=== PATIENT | male | born 1965 | race Caucasian/White ===

== ENCOUNTER → 2016-08-19 | Outpatient (REF) | payer BC ==
[2016-08-19 13:45] LABS: ALKALINE PHOSPHATASE 80 U/L (45-117); ALT/SGPT 30 U/L (12-78); ANION GAP 7 MEQ/L (8-16); AST/SGOT 15 U/L (15-37); BILIRUBIN,TOTAL 0.4 MG/DL (0.2-1.0); BLOOD UREA NITROGEN 22 MG/DL (7-18); CALCIUM LEVEL 9.4 MG/DL (8.5-10.1); CARBON DIOXIDE LEVEL 28 MEQ/L (21-32); CHLORIDE LEVEL 107 MEQ/L (98-107); CHOLESTEROL LEVEL 223 MG/DL (<200); GLOMERULAR FILTRATION RATE > 60.0 (>56); GLUCOSE, FASTING 101 MG/DL (70-105); POTASSIUM SERUM 4.6 MEQ/L (3.5-5.1); SODIUM LEVEL 142 MEQ/L (136-145); TRIGLYCERIDES LEVEL 130 MG/DL (<150)
[2016-08-19 13:46] LABS: ALBUMIN 4.3 GM/DL (3.2-5.2); ALBUMIN/GLOBULIN RATIO 1.39 (1.00-1.93); TOTAL PROTEIN 7.4 GM/DL (6.4-8.2)
== END ==
LOC: M SFHCPLAZ 08:46
PROVIDERS: ATTEND Family Medicine
DX: E78.5 Hyperlipidemia, unspecified (principal)

== ENCOUNTER → 2017-02-09 | Outpatient (REF) | payer BC | LOC: M SFHCPLAZ 08:23 | PROVIDERS: ATTEND Family Medicine | DX: E78.5 Hyperlipidemia, unspecified (principal) ==

== ENCOUNTER → 2017-08-17 | Outpatient (REF) | payer BC ==
[2017-08-17 13:53] LABS: ALBUMIN/GLOBULIN RATIO 1.18 (1.00-1.93); ALKALINE PHOSPHATASE 82 U/L (45-117); ALT/SGPT 38 U/L (12-78); ANION GAP 11 MEQ/L (8-16); AST/SGOT 23 U/L (7-37); BILIRUBIN,TOTAL 0.4 MG/DL (0.2-1.0); BLOOD UREA NITROGEN 12 MG/DL (7-18); CALCIUM LEVEL 8.8 MG/DL (8.5-10.1); CARBON DIOXIDE LEVEL 27 MEQ/L (21-32); CHLORIDE LEVEL 103 MEQ/L (98-107); CHOLESTEROL LEVEL 232 MG/DL (<200); CHOLESTEROL RISK RATIO 4.833 (<5); CREATININE FOR GFR 0.94 MG/DL (0.70-1.30); GLOMERULAR FILTRATION RATE > 60.0 (>56); GLUCOSE, FASTING 94 MG/DL (70-100); HDL CHOLESTEROL 48 MG/DL (>40); NON-HDL-C 184 MG/DL; POTASSIUM SERUM 4.5 MEQ/L (3.5-5.1); SODIUM LEVEL 141 MEQ/L (136-145); TOTAL PROTEIN 7.4 GM/DL (6.4-8.2); TRIGLYCERIDES LEVEL 200 MG/DL (<150)
[2017-08-17 18:19] LABS: ESTIMATED AVERAGE GLUCOSE 114 MG/DL (60-110); HEMOGLOBIN A1c 5.6 %
== END ==
LOC: M SFHCADAM 08:35
DX: R73.03 Prediabetes (principal); E78.5 Hyperlipidemia, unspecified; R03.0 Elevated blood-pressure reading, without diagnosis of hypertension
CPT/HCPCS: 80053

== ENCOUNTER → 2018-07-14 | Outpatient (REF) | payer BC ==
[2018-07-14 13:53] LABS: ALBUMIN 4.1 GM/DL (3.2-5.2); ALT/SGPT 30 U/L (12-78); BILIRUBIN,TOTAL 0.8 MG/DL (0.2-1.0); BLOOD UREA NITROGEN 18 MG/DL (7-18); CALCIUM LEVEL 8.8 MG/DL (8.5-10.1); CARBON DIOXIDE LEVEL 27 MEQ/L (21-32); CHLORIDE LEVEL 104 MEQ/L (98-107); CHOLESTEROL LEVEL 216 MG/DL (<200); CREATININE FOR GFR 0.89 MG/DL (0.70-1.30); GLOMERULAR FILTRATION RATE > 60.0 (>56); GLUCOSE, FASTING 101 MG/DL (70-100); HDL CHOLESTEROL 48 MG/DL (>40); LDL CHOLESTEROL 147 MG/DL (<100); NON-HDL-C 168 MG/DL; POTASSIUM SERUM 4.5 MEQ/L (3.5-5.1); SODIUM LEVEL 139 MEQ/L (136-145); TOTAL PROTEIN 7.7 GM/DL (6.4-8.2); TRIGLYCERIDES LEVEL 107 MG/DL (<150)
[2018-07-14 13:55] LABS: HEMOGLOBIN A1c 5.4 %
== END ==
LOC: M SFHCADAM 08:49
PROVIDERS: ATTEND Family Medicine
DX: E78.5 Hyperlipidemia, unspecified (principal); R73.03 Prediabetes; Z12.5 Encounter for screening for malignant neoplasm of prostate
CPT/HCPCS: 80053; 80061; 83036; G0103

== ENCOUNTER → 2019-08-24 | Outpatient (REF) | payer BC ==
[2019-08-24 14:25] LABS: ALBUMIN 4.1 GM/DL (3.2-5.2); ALT/SGPT 41 U/L (12-78); BILIRUBIN,TOTAL 0.6 MG/DL (0.2-1.0); BLOOD UREA NITROGEN 19 MG/DL (7-18); CALCIUM LEVEL 9.7 MG/DL (8.5-10.1); CARBON DIOXIDE LEVEL 30 MEQ/L (21-32); CHLORIDE LEVEL 105 MEQ/L (98-107); CHOLESTEROL LEVEL 259 MG/DL (<200); CHOLESTEROL RISK RATIO 5.755 (<5); CREATININE FOR GFR 0.88 MG/DL (0.70-1.30); GLOMERULAR FILTRATION RATE > 60.0 (>56); GLUCOSE, FASTING 93 MG/DL (70-100); HDL CHOLESTEROL 45 MG/DL (>40); LDL CHOLESTEROL 152 MG/DL (<100); NON-HDL-C 214 MG/DL; POTASSIUM SERUM 4.5 MEQ/L (3.5-5.1); RHEUMATOID FACTOR QUANT 75.7 IU/ML (<15.0); SODIUM LEVEL 139 MEQ/L (136-145); TOTAL PROTEIN 7.7 GM/DL (6.4-8.2); TRIGLYCERIDES LEVEL 308 MG/DL (<150)
[2019-08-24 14:45] LABS: HEMOGLOBIN A1c 5.7 %
[2019-08-25 19:09] LABS: ANA (HEP2) Negative (.)
== END ==
LOC: M SFHCADAM 08:42
PROVIDERS: ATTEND Family Medicine
DX: M79.89 Other specified soft tissue disorders (principal); I10 Essential (primary) hypertension; R73.03 Prediabetes; E78.5 Hyperlipidemia, unspecified; Z12.5 Encounter for screening for malignant neoplasm of prostate
CPT/HCPCS: 80053; 80061; 83036; 85652; 86038; 86431; G0103

== ENCOUNTER → 2020-02-01 | Outpatient (REF) | payer BC ==
[2020-02-01 17:01] LABS: C REACTIVE PROTEIN QUANTITATIV < 0.30 MG/DL (0.00-0.30); CHOLESTEROL LEVEL 247 MG/DL (<200); HDL CHOLESTEROL 50 MG/DL (>40); LDL CHOLESTEROL 164 MG/DL (<100); NON-HDL-C 197 MG/DL; TRIGLYCERIDES LEVEL 167 MG/DL (<150)
== END ==
LOC: M SFHCADAM 09:10
PROVIDERS: ATTEND Family Medicine
DX: E78.5 Hyperlipidemia, unspecified (principal); R76.8 Other specified abnormal immunological findings in serum; M79.89 Other specified soft tissue disorders

== ENCOUNTER → 2020-03-07 | Outpatient (CLI) | payer BC ==
--- NOTE | 2020-03-07 12:58 | REP ---
INDICATION: UNILATERAL PRIMARY OSTEOARTHRITIS, LEFT HIP COMPARISON: None. TECHNIQUE: Frontal view of the pelvis with neutral and frog-lateral views of the right and left hip. FINDINGS: Patient is status post right hip replacement. Moderate to significant degenerative changes of the left hip includes subchondral sclerosis to the acetabulum and femoral head with osteophytosis primarily noted along the inferior margin of the acetabulum and near complete joint space obliteration. No evidence for fracture or dislocation. IMPRESSION: Moderate to significant degenerative changes to the left hip. <Electronically signed by Ramon Nava > 03/07/20 [id number]
--- NOTE | 2020-03-07 13:01 | REP ---
INDICATION: UNILATERAL PRIMARY OSTEOARTHRITIS, LEFT HIP COMPARISON: None. TECHNIQUE: AP, lateral, bilateral oblique views right and left hand. FINDINGS: Right hand demonstrates generalized age-related changes. Minimal arthritic changes at the interphalangeal joints and 1st metacarpophalangeal joint includes subtle subchondral sclerosis with minimal marginal spurring. No periarticular calcifications or erosive changes. No acute or healed injury. Left hand demonstrates generalized age-related changes. Minimal arthritic changes at the interphalangeal joints and 1st metacarpophalangeal joint include subtle subchondral sclerosis with minimal marginal spurring. No periarticular calcification or erosive changes. No acute or healed injury. IMPRESSION: Mild symmetric arthritic changes primarily involving the 1st metacarpophalangeal and interphalangeal joints. <Electronically signed by Ramon Nava > 03/07/20 [id number]
== END ==
LOC: M RAD 12:26
PROVIDERS: ATTEND Internal Medicine
DX: M16.12 Unilateral primary osteoarthritis, left hip (principal); M05.79 Rheumatoid arthritis with rheumatoid factor of multiple sites without organ or systems involvement; Z96.642 Presence of left artificial hip joint

== ENCOUNTER → 2020-03-07 | Outpatient (REF) | payer BC ==
[2020-03-07 13:08] LABS: BASO % 0.7 % (0.0-1.0); EOS # 0.1 10^3/uL (0.0-0.5); EOS % 1.7 % (0.0-3.0); HEMATOCRIT 45.8 % (42.0-52.0); HEMOGLOBIN 14.7 g/dl (13.5-17.5); LYMPH # 1.6 10^3/uL (1.5-5.0); LYMPH % 27.9 % (24.0-44.0); MEAN CORPUSCULAR HEMOGLOBIN 28.3 pg (27.0-33.0); MEAN CORPUSCULAR HGB CONC 32.1 g/dl (32.0-36.5); MEAN CORPUSCULAR VOLUME 88.2 fl (80.0-96.0); MONO # 0.5 10^3/uL (0.0-0.8); NEUTROPHILS # 3.5 10^3/uL (1.5-8.5); NEUTROPHILS % 59.2 % (36.0-66.0); PLATELET COUNT, AUTOMATED 274 10^3/uL (150-450); RED BLOOD COUNT 5.19 10^6/uL (4.30-6.10); WHITE BLOOD COUNT 5.9 10^3/uL (4.0-10.0)
[2020-03-07 13:43] LABS: ALBUMIN 4.3 GM/DL (3.2-5.2); ALT/SGPT 39 U/L (12-78); BILIRUBIN,TOTAL 0.5 MG/DL (0.2-1.0); BLOOD UREA NITROGEN 17 MG/DL (7-18); CALCIUM LEVEL 9.2 MG/DL (8.5-10.1); CARBON DIOXIDE LEVEL 29 MEQ/L (21-32); CHLORIDE LEVEL 105 MEQ/L (98-107); CREATININE FOR GFR 0.94 MG/DL (0.70-1.30); ERYTHROCYTE SEDIMENTATION RATE 10 mm/hr (0-20); GLOMERULAR FILTRATION RATE > 60.0 (>56); GLUCOSE, FASTING 96 MG/DL (70-100); POTASSIUM SERUM 4.7 MEQ/L (3.5-5.1); SODIUM LEVEL 138 MEQ/L (136-145); TOTAL PROTEIN 7.4 GM/DL (6.4-8.2)
[2020-03-07 14:03] LABS: HEPATITIS B SURFACE ANTIGEN NEGATIVE (NEGATIVE)
[2020-03-07 14:32] LABS: HEPATITIS C VIRUS ABY INDEX 0.1 INDEX (<0.8)
== END ==
LOC: M SFHCRHEU 11:07
PROVIDERS: ATTEND Internal Medicine
DX: M05.79 Rheumatoid arthritis with rheumatoid factor of multiple sites without organ or systems involvement (principal)

== ENCOUNTER → 2020-03-16 | Outpatient (CLI) | payer SELFPAY | LOC: M LABSMTC 08:57 | PROVIDERS: ATTEND Pediatrics | DX: Z20.822 Contact with and (suspected) exposure to COVID-19 (principal) ==

== ENCOUNTER → 2020-03-27 | Outpatient (CLI) | payer SELFPAY | LOC: M LABSMTC 12:50 | PROVIDERS: ATTEND Pediatrics | DX: Z20.822 Contact with and (suspected) exposure to COVID-19 (principal) ==

== ENCOUNTER → 2020-03-28 | Outpatient (CLI) | payer BC ==
[2020-03-28 13:42] LABS: BASO % 0.6 % (0.0-1.0); EOS # 0.1 10^3/uL (0.0-0.5); EOS % 1.9 % (0.0-3.0); HEMATOCRIT 45.7 % (42.0-52.0); LYMPH # 1.8 10^3/uL (1.5-5.0); LYMPH % 27.7 % (24.0-44.0); MEAN CORPUSCULAR HGB CONC 32.8 g/dl (32.0-36.5); MEAN CORPUSCULAR VOLUME 88.4 fl (80.0-96.0); MONO # 0.6 10^3/uL (0.0-0.8); MONO % 9.5 % (0.0-5.0); NEUTROPHILS # 3.8 10^3/uL (1.5-8.5); NEUTROPHILS % 59.1 % (36.0-66.0); PLATELET COUNT, AUTOMATED 269 10^3/uL (150-450); RED BLOOD COUNT 5.17 10^6/uL (4.30-6.10); WHITE BLOOD COUNT 6.4 10^3/uL (4.0-10.0)
[2020-03-28 14:12] LABS: ERYTHROCYTE SEDIMENTATION RATE 13 mm/hr (0-20)
[2020-03-28 14:47] LABS: ALBUMIN 4.3 GM/DL (3.2-5.2); ALT/SGPT 35 U/L (12-78); BILIRUBIN,TOTAL 0.5 MG/DL (0.2-1.0); BLOOD UREA NITROGEN 15 MG/DL (7-18); C REACTIVE PROTEIN QUANTITATIV 0.32 MG/DL (0.00-0.30); CALCIUM LEVEL 9.7 MG/DL (8.5-10.1); CARBON DIOXIDE LEVEL 31 MEQ/L (21-32); CHLORIDE LEVEL 103 MEQ/L (98-107); CREATININE FOR GFR 0.91 MG/DL (0.70-1.30); GLOMERULAR FILTRATION RATE > 60.0 (>56); GLUCOSE, FASTING 105 MG/DL (70-100); POTASSIUM SERUM 5.1 MEQ/L (3.5-5.1); SODIUM LEVEL 141 MEQ/L (136-145); TOTAL PROTEIN 7.6 GM/DL (6.4-8.2)
== END ==
LOC: M LAB 12:02
PROVIDERS: ATTEND Internal Medicine
DX: M05.79 Rheumatoid arthritis with rheumatoid factor of multiple sites without organ or systems involvement (principal)

== ENCOUNTER 2020-06-11 12:13 | Inpatient (IN) | payer BC ==
[~2020-06-11] VITALS: Ht 188 cm; Wt 133.2 kg
[2020-06-11] MEDS ORDERED: AMLO1TAB24 PO (12:42)
[2020-06-11] MEDS ORDERED: hydrALAZINE 20MG/ML 1ML VIAL (J0360 PER 20MG) IV ONE (12:45)
[2020-06-11 13:20] LABS: HEMATOCRIT 44.9 % (42.0-52.0); HEMOGLOBIN 14.8 g/dl (13.5-17.5); MEAN CORPUSCULAR HEMOGLOBIN 29.1 pg (27.0-33.0); MEAN CORPUSCULAR VOLUME 88.2 fl (80.0-96.0); PLATELET COUNT, AUTOMATED 332 10^3/uL (150-450); RED BLOOD COUNT 5.09 10^6/uL (4.30-6.10); WHITE BLOOD COUNT 9.4 10^3/uL (4.0-10.0)
[2020-06-11] MEDS ORDERED: AMPICILLIN SOD/SULBACTAM SOD 3 GM in D5W MINI-BAG PLUS 100 ML IV ONE (13:20)
[2020-06-11] MEDS: HYDROMORPHONE HCL 0.5 MG/ 0.5 ML SYRINGE (J1170 PER 1) IV PRN ×2 (13:52→14:33)
--- NOTE | 2020-06-11 14:08 | HPEPDOC ---
[facility] Medical History & Physical Date of Admission Jun 11, 2020 Date of Service: Jun 11, 2020 History and Physical CHIEF COMPLAINT: Epistasis HISTORY OF PRESENT ILLNESS: 54-year-old male who was in his usual state of healt h this morning, developed a nosebleed from his left nares. He denies any trauma to his nares. He sought medical attention in [place] where a Rhino Rocket was places in his left nostril, with no improvement in his symptoms. He then received a Rhino Rocket in his right nostril, still with no improvement in his symptoms. He was then transferred to [facility] and continues to have bleeding from both nares. He complains of pain from his nose, with elevated blood pressure. Denies any other symptoms. He denies chest pain, shortness of breath, abdominal pain, nausea, vomiting or diarrhea. He is not able to obtain a Covid test because of the Rhino Rocket. He states he received his first shot of Moderna vaccine roughly 2 weeks ago. He denies any sick contacts. He denies any travel outside of [facility]. PAST MEDICAL HISTORY: #HTN ALLERGIES: Please see below. REVIEW OF SYSTEMS: Negative except as per HPI HOME MEDICATIONS: Please see below. PHYSICAL EXAMINATION: VITAL SIGNS: See below GENERAL APPEARANCE: mild distress from pain HEENT: NC, rhino rocket in both nares CARDIOVASCULAR: +S1S2, RRR LUNGS: CTA B/L ABDOMEN: soft, NT, +BS, obese EXTREMITIES: no edema PSYCHIATRIC: AAOx3 LABORATORY DATA: See below. MICROBIOLOGY: Please see below. A/P: 54 yo male for epistaxis with elevated blood pressure #epistaxis - follow as per ENT - consultation pending #HTN - IV hydralazine for blood pressure control - continue home amlodipine #DVT prophylaxis - mechanical Dispo: pending ENT c/s, blood pressure control. Patient unable to obtain COVID testing, however has had first Moderna vaccination, and denies any sick contacts or concerning symptoms. Discussed with infection control. Vital Signs Vital Signs Date Time Temp Pulse Resp B/P (MAP) Pulse Ox O2 Delivery O2 Flow Rate FiO2 06/11/20 13:52 97.3 81 17 190/105 96 Room Air Laboratory Data Labs 24H Laboratory Tests 2 06/11/20 12:58: Nucleated Red Blood Cells % (auto) 0.0 CBC/BMP Laboratory Tests 06/11/20 12:58 Home Medications Scheduled Amlodipine Besylate (Amlodipine Besylate) 5 Mg Tablet, 5 MG PO DAILY Allergies Coded Allergies: Cashew (Unverified Allergy, Unknown, 06/11/20) Rebutwu-Zgb-Osx Reductase Inhibitor (Unverified Allergy, Unknown, 06/11/20) prednisone (Unverified Allergy, Unknown, 06/11/20) A-FIB/CHADSVASC A-FIB History Current/History of A-Fib/PAF?: No RENAE BENITES MD Jun 11, 2020 14:08
[2020-06-11 15:02] LABS: INR 0.95; PROTHROMBIN TIME 12.9 SECONDS (12.5-14.3)
[2020-06-11 15:15] LABS: ALBUMIN 3.9 GM/DL (3.2-5.2); ALT/SGPT 32 U/L (12-78); BILIRUBIN,TOTAL 0.4 MG/DL (0.2-1.0); BLOOD UREA NITROGEN 29 MG/DL (7-18); CALCIUM LEVEL 9.5 MG/DL (8.5-10.1); CARBON DIOXIDE LEVEL 27 MEQ/L (21-32); CHLORIDE LEVEL 104 MEQ/L (98-107); CREATININE FOR GFR 0.77 MG/DL (0.70-1.30); GLOMERULAR FILTRATION RATE > 60.0 (>56); GLUCOSE, FASTING 115 MG/DL (70-100); POTASSIUM SERUM 4.7 MEQ/L (3.5-5.1); SODIUM LEVEL 140 MEQ/L (136-145); TOTAL PROTEIN 7.6 GM/DL (6.4-8.2)
[2020-06-11 16:19] VITALS: BP 129/81
[2020-06-11] MEDS ORDERED: propofoL 200 MG/20 ML VIAL As Ordered ONE (17:42)
[2020-06-11] MEDS ORDERED: LIDOCAINE 2% 100MG/5ML SDV (FOR ANES.) As Ordered ONE ×2 (17:42→19:03)
[2020-06-11] MEDS ORDERED: ROCURONIUM BROMIDE 50 MG/5 ML VIAL As Ordered ONE (17:42)
[2020-06-11] MEDS ORDERED: fentaNYL 250 MCG/5 ML INJECTION (J3010) As Ordered ONE (17:43)
[2020-06-11] MEDS ORDERED: SUCCINYLCHOLINE 100 MG/5 ML SYRINGE (J0330) As Ordered ONE (17:43)
[2020-06-11] MEDS ORDERED: MIDAZOLAM INJ 2MG/2ML VIAL (J2250 PER 1MG) As Ordered ONE (17:43)
[2020-06-11] MEDS ORDERED: SILVER NITRATE APPLICATOR As Ordered ONE (17:57)
[2020-06-11] MEDS ORDERED: METHYLENE BLUE 0.5% (5MG/ML) 10 ML AMP (PROVAYBLUE) As Ordered ONE (17:57)
[2020-06-11] MEDS ORDERED: EPINEPHrine 1MG/ML INJ 30ML MD-VIAL As Ordered ONE (17:57)
[2020-06-11] MEDS ORDERED: LIDOCAINE W/EPINEPHRINE 1% 20ML VIAL As Ordered ONE (18:20)
[2020-06-11] MEDS ORDERED: PHENYLephrine 500MCG 5ML (100MCG/ML) SYRINGE As Ordered ONE (18:34)
[2020-06-11] MEDS ORDERED: ePHEDrine SULFATE 25 MG/5 ML(5MG/ML) SYRINGE As Ordered ONE (18:34)
[2020-06-11] MEDS ORDERED: dexameTHASONE 4 MG/ML 1ML VIAL (J1100 PER 1MG) As Ordered ONE (18:46)
[2020-06-11] MEDS ORDERED: ONDANSETRON 4MG/2ML VIAL As Ordered ONE (18:46)
[2020-06-11] MEDS ORDERED: SUGAMMADEX SODIUM 500 MG/5 ML VIAL (BRIDION) As Ordered ONE (18:47)
[2020-06-11] MEDS ORDERED: ACETAMINOPHEN 1000MG 100ML IV BTL (OFIRMEV) (J0131 PER 10MG) As Ordered ONE (18:50)
[2020-06-11] MEDS ORDERED: LABETALOL 100MG/20ML VIAL As Ordered ONE (19:43)
[2020-06-11] MEDS ORDERED: fentaNYL 100 MCG/2 ML INJECTION (J3010) As Ordered ONE (19:43)
[2020-06-11] MEDS: fentaNYL 100 MCG/2 ML INJECTION (J3010) IV PRN ×4 (19:46→20:14)
[2020-06-11] MEDS: LABETALOL 100MG/20ML VIAL IV PRN ×2 (19:48→20:01)
[2020-06-11] MEDS ORDERED: oxyCODONE 5MG TAB PO PRN (20:10)
[2020-06-11] MEDS ORDERED: LR 1,000 ML IV SCH (20:10)
[2020-06-11] MEDS ORDERED: ONDANSETRON 4MG/2ML VIAL IV PRN (20:10)
[2020-06-11 21:06] VITALS: BP 129/83
[2020-06-11 21:30] VITALS: BP 131/84
[2020-06-11] MEDS: AMPICILLIN SOD/SULBACTAM SOD 1.5 GM in D5W MINI-BAG PLUS 50 ML IV SCH (21:31)
[2020-06-11 22:30] VITALS: BP 134/83
[2020-06-11] MEDS ORDERED: ACETAMINOPHEN TAB 650MG DOSE (2X325MG) PO PRN (23:00)
[2020-06-11 23:30] VITALS: BP 133/80
[2020-06-12] MEDS ORDERED: oxyCODONE 5MG TAB PO PRN
[2020-06-12 00:30] VITALS: BP 115/69
[2020-06-12 01:30] VITALS: BP 130/79
[2020-06-12] MEDS: SODIUM CHLORIDE NASAL 0.65% SPRAY BTL (OCEAN) SCH ×2 (01:42→10:24)
[2020-06-12] MEDS: AMPICILLIN SOD/SULBACTAM SOD 1.5 GM in D5W MINI-BAG PLUS 50 ML IV SCH ×2 (02:35→10:24)
[2020-06-12 06:00] VITALS: BP 123/70
[2020-06-12 07:01] LABS: BASO % 0.2 % (0.0-1.0); HEMATOCRIT 36.8 % (42.0-52.0); LYMPH # 1.1 10^3/uL (1.5-5.0); LYMPH % 10.8 % (24.0-44.0); MEAN CORPUSCULAR HEMOGLOBIN 29.3 pg (27.0-33.0); MEAN CORPUSCULAR HGB CONC 32.6 g/dl (32.0-36.5); MEAN CORPUSCULAR VOLUME 89.8 fl (80.0-96.0); MONO # 0.5 10^3/uL (0.0-0.8); MONO % 5.1 % (2.0-8.0); NEUTROPHILS # 8.5 10^3/uL (1.5-8.5); NEUTROPHILS % 82.4 % (36.0-66.0); PLATELET COUNT, AUTOMATED 286 10^3/uL (150-450); WHITE BLOOD COUNT 10.3 10^3/uL (4.0-10.0)
[2020-06-12 07:25] LABS: ALBUMIN 3.5 GM/DL (3.2-5.2); ALT/SGPT 27 U/L (12-78); BILIRUBIN,TOTAL 0.4 MG/DL (0.2-1.0); BLOOD UREA NITROGEN 38 MG/DL (7-18); CALCIUM LEVEL 8.7 MG/DL (8.5-10.1); CARBON DIOXIDE LEVEL 26 MEQ/L (21-32); CHLORIDE LEVEL 101 MEQ/L (98-107); CREATININE FOR GFR 1.15 MG/DL (0.70-1.30); GLOMERULAR FILTRATION RATE > 60.0 (>56); GLUCOSE, FASTING 149 MG/DL (70-100); POTASSIUM SERUM 4.6 MEQ/L (3.5-5.1); SODIUM LEVEL 134 MEQ/L (136-145); TOTAL PROTEIN 6.7 GM/DL (6.4-8.2)
--- NOTE | 2020-06-12 07:57 | ECGEPIP ---
[facility] - ED Test Date: 2020-06-11 Pat Name: JERE VAIL Department: Room: [place] [address] Gender: Male Pulper Tender: jayleen : 1965 Requested By: MARLENA Vee Order Number: [id number] Reading MD: Poli Pedroza Measurements Intervals [place] Rate: 91 P: 32 AK: 150 QRS: 19 QRSD: 94 T: 1 QT: 364 QTc: 447 Interpretive Statements Normal sinus rhythm Minimal voltage criteria for LVH, may be normal variant ( R in aVL ) NONSPECIFIC T WAVE ABNORMALITY(S) NO PRIORS FOR COMPARISON Electronically Signed on 06-12-2020 7:56:53 EDT by Poli Pedroza
--- NOTE | 2020-06-12 08:58 | RO ---
OPERATIVE NOTE DATE OF OPERATION: 06/11/2020 PREOPERATIVE DIAGNOSIS: Epistaxis. POSTOPERATIVE DIAGNOSIS: Epistaxis. PROCEDURE PERFORMED: 1. Removal of the right and the left Rhino Rockets. 2. Nasal endoscopy. 3. Control of epistaxis, left and right using the Sinu-Foam. SURGEON: Forrest Linares MD PICKLING OPERATOR: ANESTHESIA: General. CLINICAL PREAMBLE: This is a 54-year-old man who presented to the local emergency department with sudden onset of epistaxis that started from the left side early this morning. A Rhino Rocket was initially placed to the left side. However, the hemorrhage occurred to the right side as well. As such, bilateral Rhino Rocket placement was performed. The patient continued to have issue with continued hemorrhage as well as increased systolic blood pressure up to 195. As a result, he was transferred to [facility] for further evaluation and control of the epistaxis as needed. The hospitalist has been managing the blood pressure with good progress. However, the patient complained of significant pain due to bilateral nasal packing. He also has some residual oozing seen on the posterior pharyngeal wall. As such, management options including surgery risks have been discussed with the patient. He understood and consented to the procedure. OR NARRATION: The patient was transferred directly from the floor to the OR due to COVID-19 precaution requirement as he could not get nasal swab for the COVID testing. He was placed in supine position on the operating table. General anesthesia was induced followed by orotracheal intubation without incident. The patient was prepped and draped in the usual fashion for the procedure. Appropriate COVID-19 precautions were taken including wearing N95 mask throughout the entire procedure. The right Rhino Rocket was then deflated and removed from the nasal cavity. Cottonoid pledgets soaked in 1:100,000 epinephrine was then placed into the right nasal cavity. After a waiting period, the pledgets were removed using 30 degree rigid nasal endoscope. The right nasal cavity was inspected. There was no evidence of arterial bleeder. The sphenopalatine artery area was free of ulceration, no mass or lesion. The nasal cavity was then repacked with the pledget soaking 1:1000 epinephrine. Attention was turned to the left nasal cavity. The left Rhino Rocket was deflated and successfully removed. The left nasal cavity was then packed using pledget soaked in 1:1000 epinephrine as well. After a waiting period, the pledget was removed and inspection of the left nasal cavity was performed using 30 degree rigid nasal endoscope as well. There was no evidence of mass lesions or arterial bleeder. The left sphenopalatine area was also clear. At this time, the Sinu-Foam was then used to pack the left nasal cavity. The right nasal cavity was then similarly packed using the self-dissolving Sinu-Foam as well. At the end of the procedure, sponge and instrument counts were correct. No complications were encountered. Estimated blood loss was approximately 5 mL. General anesthesia was reversed and the patient was extubated and brought to the recovery room in stable condition. At the end of the procedure, the hospitalist, Dr. Givens was contacted and I was able to inform him of my findings and he will maximize the control of the hypertension issue. I have also spoken to the patient in the postop area to inform of the findings as well.
[2020-06-12] MEDS ORDERED: amLODIPine 5 MG TAB PO SCH (09:00)
[2020-06-12 10:00] VITALS: BP 127/70
[2020-06-12] MEDS ORDERED: Sodium Chloride Nasal Spray (10:11)
[2020-06-12] MEDS ORDERED: AUGM875T28 PO (10:11)
[2020-06-12 10:26] VITALS: BP 127/70
--- NOTE | 2020-06-12 13:31 | DSES ---
DISCHARGE SUMMARY DATE OF ADMISSION: 06/11/2020 DATE OF DISCHARGE: 06/12/2020 DISCHARGE DIAGNOSIS: Epistaxis, severe, with acute blood loss anemia. SECONDARY DIAGNOSIS: Hypertension. HISTORY: Antonio Menard was admitted with severe epistaxis. He was transferred from [facility] for ENT evaluation. HOSPITAL COURSE: He was transferred to [facility]. Dr. Linares saw him. He went to the operating room. No arterial bleeder was seen. This was a venous nose bleed. Rhino Rockets were removed left and right, and he had Sinu-Foam which is self dissolving packing placed with control of epistaxis. On the morning of discharge, his hemoglobin was down from a baseline of 14.8 to 12.0, but he has no active bleeding. His blood pressure was under good control, and he was ready to go home. PHYSICAL EXAMINATION: HEENT: Essentially unremarkable. LUNGS: Clear. HEART: Regular rhythm. ABDOMEN: Soft, nontender. EXTREMITIES: No peripheral edema. LABORATORY DATA: Electrolytes unremarkable. Creatinine normal. Hemoglobin on discharge 12. INR normal. DISPOSITION: He was discharged home in improved and stable condition. We had a long discussion today. This was a venous nose bleed and has nothing to do with his arterial blood pressure. We discussed this at length (hypertension does not cause venous epistaxis as the venous pressure is totally unaffected by the arterial blood pressure). He will use saline nasal spray for hydration every four hours. It probably was a nose bleed due to excessive winter dryness. His activity is as tolerated. No added salt diet. He is on amlodipine 5 mg daily for his blood pressure, and I sent some Augmentin 875 mg b.i.d. for seven days to his pharmacy. Follow up in our office in a week. Follow up with Dr. Linares per his office.
== END 2020-06-12 13:18 | disposition home or self-care (01) | DRG 951 ==
LOC: M ED 12:13 → EDBD 12:13 → M ED INP 14:08 → ENRESERV 14:57 → M MSPAV 16:20
PROVIDERS: ADMIT Internal Medicine; ATTEND Family Medicine
PROC: 093K8ZZ Control Bleeding in Nasal Mucosa and Soft Tissue, Via Natural or Artificial Opening Endoscopic (ICD-10-PCS; principal; 2020-06-11 13:30)
DX: R04.0 Epistaxis (principal); D62 Acute posthemorrhagic anemia; I10 Essential (primary) hypertension

== ENCOUNTER → 2020-06-19 | Outpatient (REF) | payer BC ==
[~2020-06-19] MED LIST: AMLO1TAB24 PO; AUGM875T28 PO; Sodium Chloride Nasal Spray
[2020-06-19 12:50] LABS: BASO # 0.1 10^3/uL (0.0-0.2); BASO % 1.3 % (0.0-1.0); EOS # 0.1 10^3/uL (0.0-0.5); EOS % 1.6 % (0.0-3.0); HEMATOCRIT 39.1 % (42.0-52.0); HEMOGLOBIN 12.8 g/dl (13.5-17.5); LYMPH # 2.2 10^3/uL (1.5-5.0); LYMPH % 27.7 % (24.0-44.0); MEAN CORPUSCULAR HEMOGLOBIN 29.3 pg (27.0-33.0); MEAN CORPUSCULAR HGB CONC 32.7 g/dl (32.0-36.5); MEAN CORPUSCULAR VOLUME 89.5 fl (80.0-96.0); MONO # 0.7 10^3/uL (0.0-0.8); MONO % 8.5 % (2.0-8.0); NEUTROPHILS # 4.5 10^3/uL (1.5-8.5); NEUTROPHILS % 56.7 % (36.0-66.0); PLATELET COUNT, AUTOMATED 304 10^3/uL (150-450); RED BLOOD COUNT 4.37 10^6/uL (4.30-6.10); WHITE BLOOD COUNT 7.9 10^3/uL (4.0-10.0)
[2020-06-19 13:01] LABS: INR 0.92; PROTHROMBIN TIME 12.5 SECONDS (12.5-14.3)
[2020-06-19 13:02] LABS: PARTIAL THROMBOPLASTIN TIME 29.9 SECONDS (24.2-38.5)
== END ==
LOC: M SFHCADAM 10:30
PROVIDERS: ATTEND Physician Assistant
DX: M05.79 Rheumatoid arthritis with rheumatoid factor of multiple sites without organ or systems involvement (principal); R04.2 Hemoptysis; R04.0 Epistaxis

== ENCOUNTER → 2020-06-21 | Outpatient (CLI) | payer BC ==
--- NOTE | 2020-06-21 12:27 | REP ---
INDICATION: HEMOPTYSIS COMPARISON: None TECHNIQUE: Axial noncontrast images from the thoracic inlet to the upper abdomen with coronal and sagittal reformations. This CT examination was performed using the following dose reduction techniques: Automated exposure control, adjustment of mA and/or kv according to the patient's size, and use of iterative reconstruction technique. FINDINGS: The bilateral lung estrella are relatively well aerated, symmetric and essentially clear. No consolidation, mass lesion, or obvious significant nodule is identified. Very few small noncalcified nodules measure up to 3 mm (left lower lobe image 77). No effusion. No pneumothorax. No obvious adenopathy. The mediastinum demonstrates mild atherosclerotic changes to the thoracic aorta and coronary arteries without aortic aneurysm or cardiomegaly. No pericardial effusion. A small hiatal hernia at the gastroesophageal junction is suggested. Musculoskeletal structures are intact and without acute osseous abnormality. Upper abdomen demonstrates cholelithiasis and normal bilateral adrenal glands. IMPRESSION: 1. No obvious significant acute mediastinal or pleuroparenchymal process. 2. Few small noncalcified nodules up to 3 mm are nonspecific. Consider 12 month follow-up low-dose chest CT for high risk patients. <Electronically signed by Ramon Nava > 06/21/20 [id number]
== END ==
LOC: M RAD 11:57
PROVIDERS: ATTEND Family Medicine
DX: R04.2 Hemoptysis (principal)

== ENCOUNTER → 2020-07-09 | Outpatient (CLI) | payer BC ==
--- NOTE | 2020-07-09 15:38 | REPVR ---
PROCEDURE INFORMATION: Exam: CT Maxillofacial Without Contrast, Sinus Exam date and time: 07/09/2020 3:14 PM Age: 54 years old Clinical indication: Other: Sinus pain; Additional info: Chronic maxillary sinusitis TECHNIQUE: Imaging protocol: CT Maxillofacial without contrast. Focus on the sinuses. Radiation optimization: All CT scans at this facility use at least one of these dose optimization techniques: automated exposure control; mA and/or kV adjustment per patient size (includes targeted exams where dose is matched to clinical indication); or iterative reconstruction. COMPARISON: No relevant prior studies available. FINDINGS: Frontal sinuses: Normal. No air-fluid levels. Ethmoid air cells: Normal. No air-fluid levels. Sphenoid sinuses: There is mild mucosal thickening in the left sphenoid sinus. The right sphenoid sinus is clear. There are no air-fluid levels. Maxillary sinuses: There is trace mucosal thickening in the maxillary sinus is. There are no air-fluid levels. The ostiomeatal units are patent. Nasal cavity/Septum: There is mild rightward angulation of the anterior nasal septum. Mild leftward bowing of the posterior nasal septum is also present. A leftward directed nasal spur is noted along the posterior/inferior nasal septum. Orbital cavity: The orbital structures are unremarkable. Bones/joints: Unremarkable. Soft tissues: Unremarkable. IMPRESSION: No acute abnormality. Electronically signed by: Eliud Bliss On 07/09/2020 15:38:32 PM
== END ==
LOC: M RAD 15:05
PROVIDERS: ATTEND Otolaryngology
DX: J32.0 Chronic maxillary sinusitis (principal)

== ENCOUNTER 2020-07-31 20:52 | Observation (INO) | payer BC ==
[~2020-07-31] VITALS: Ht 188 cm; Wt 134.1 kg
[2020-07-31] MEDS ORDERED: OXYMETAZOLINE 0.05% NASAL SPRAY (AFRIN) ONE (21:15)
[2020-07-31 21:28] LABS: BASO # 0.1 10^3/uL (0.0-0.2); BASO % 0.6 % (0.0-1.0); EOS # 0.2 10^3/uL (0.0-0.5); EOS % 1.6 % (0.0-3.0); HEMATOCRIT 44.5 % (42.0-52.0); HEMOGLOBIN 14.6 g/dl (13.5-17.5); LYMPH # 3.3 10^3/uL (1.5-5.0); LYMPH % 35.3 % (24.0-44.0); MEAN CORPUSCULAR HEMOGLOBIN 29.3 pg (27.0-33.0); MEAN CORPUSCULAR HGB CONC 32.8 g/dl (32.0-36.5); MEAN CORPUSCULAR VOLUME 89.2 fl (80.0-96.0); MONO # 0.9 10^3/uL (0.0-0.8); MONO % 9.3 % (2.0-8.0); NEUTROPHILS # 4.9 10^3/uL (1.5-8.5); NEUTROPHILS % 52.1 % (36.0-66.0); PLATELET COUNT, AUTOMATED 318 10^3/uL (150-450); RED BLOOD COUNT 4.99 10^6/uL (4.30-6.10); WHITE BLOOD COUNT 9.4 10^3/uL (4.0-10.0)
[2020-07-31 21:40] LABS: INR 0.88; PROTHROMBIN TIME 12.1 SECONDS (12.5-14.3)
[2020-07-31 21:41] LABS: PARTIAL THROMBOPLASTIN TIME 29.7 SECONDS (24.2-38.5)
[2020-07-31 21:50] LABS: BLOOD UREA NITROGEN 22 MG/DL (7-18); CALCIUM LEVEL 9.8 MG/DL (8.5-10.1); CARBON DIOXIDE LEVEL 30 MEQ/L (21-32); CHLORIDE LEVEL 105 MEQ/L (98-107); CREATININE FOR GFR 1.17 MG/DL (0.70-1.30); GLOMERULAR FILTRATION RATE > 60.0 (>56); GLUCOSE, FASTING 141 MG/DL (70-100); SODIUM LEVEL 140 MEQ/L (136-145)
[2020-07-31] MEDS ORDERED: NS 500 ML IV ONE (22:45)
[2020-07-31] MEDS ORDERED: MORPHINE 4 MG/ML 1ML VIAL/SYRINGE (J2270) IV ONE (23:05)
[2020-07-31] MEDS ORDERED: MAALOX 30 ML SUSP *UDC PO PRN (23:45)
[2020-07-31] MEDS ORDERED: MOM 30ML SUSPENSION UDC PO PRN (23:45)
--- NOTE | 2020-07-31 23:47 | HPEPDOC ---
[facility] Medical History & Physical Date of Admission Jul 31, 2020 Date of Service: Jul 31, 2020 History and Physical CHIEF COMPLAINT: Nosebleed HISTORY OF PRESENT ILLNESS: 55-year-old male history of hypertension who presents due to bilateral nose bleed which started today. In the emergency department Rhino Rocket was placed in bilateral nares and approximately 500 mL of bloody output through suctioning oropharyngeal. Dr. Aguiar ENT saw the patient at bedside and will likely take him to the OR in the morning. The bleeding has now slowed down with minimal output. Patient says he feels well overall other than the bleeding his head feels a little heavy he doesn't have any chest pain or trouble breathing doesn't have any pain no fevers or chills. Patient will be admitted to observation for epistaxis and evaluation by ENT in the morning. Of note patient had a similar history of epistaxis on June 11 and went to the O R with ENT Dr. Jade. Denies being on anticoagulation medications PAST MEDICAL/SURGICAL HISTORY: Hypertension Hyperlipidemia diet controlled History of epistaxis Right hip replacement SOCIAL HISTORY: Denies alcohol use Denies tobacco use Denies illicit drug use FAMILY HISTORY: Reviewed and none contributory to this admission ALLERGIES: Please see below. REVIEW OF SYSTEMS: 10 point review of systems complete all negative otherwise stated in HPI HOME MEDICATIONS: Please see below. PHYSICAL EXAMINATION: Constitutional: Awake and alert, in no apparent distress ENT: Bloody Nares, bilaterally packed holding oropharyngeal suctioning with minimal bloody output at this point. Respiratory: Lungs CTA bilaterally. No respiratory distress. No use of accessory muscles. Cardiovascular: Regular rate and rhythm Gastrointestinal: Abdomen is soft, non distended, non tender, BS present. Musculoskeletal: No lower extremity edema. Neurologic: No focal neurological deficit. Mental Status: A&O x3, normal affect Skin: No visible rashes or bruising LABORATORY DATA: See below. IMAGING: See chart MICROBIOLOGY: Please see below. ASSESSMENT/PLAN 55-year-old male being admitted for observation due to epistaxis evaluated by ENT in the morning # Bilateral epistaxis: Bilateral Rhino Rocket in place. Admitted to observation. Nothing by mouth for possible procedure with ENT Dr. Aguiar in the morning. # Hypertension: Continue home meds. Monitor and titrate # DVT prophylaxis: SCDs/TEds only due to bleeding A Yousef Hospitalist Vital Signs Vital Signs Date Time Temp Pulse Resp B/P (MAP) Pulse Ox O2 Delivery O2 Flow Rate FiO2 07/31/20 23:24 85 16 164/92 (116) 97 07/31/20 20:53 98.2 Room Air Laboratory Data Labs 24H Laboratory Tests 2 07/31/20 21:19: Immature Granulocyte % (Auto) 1.1, Neutrophils (%) (Auto) 52.1, Lymphocytes (%) (Auto) 35.3, Monocytes (%) (Auto) 9.3H, Eosinophils (%) (Auto) 1.6, Basophils (%) (Auto) 0.6, Neutrophils # (Auto) 4.9, Lymphocytes # (Auto) 3.3, Monocytes # (Auto) 0.9H, Eosinophils # (Auto) 0.2, Basophils # (Auto) 0.1, Nucleated Red Blood Cells % (auto) 0.0, Prothrombin Time 12.1, Prothromb Time International Ratio 0.88, Activated Partial Thromboplast Time 29.7, Anion Gap 5L, Glomerular Filtration Rate > 60.0, Calcium Level 9.8 CBC/BMP Laboratory Tests 07/31/20 21:19 Home Medications Scheduled Amlodipine Besylate (Amlodipine Besylate) 5 Mg Tablet, 5 MG PO DAILY Allergies Coded Allergies: Cashew (Unverified Allergy, Unknown, 06/11/20) Qguazey-Xxi-Lgc Reductase Inhibitor (Unverified Allergy, Unknown, 06/11/20) prednisone (Unverified Allergy, Unknown, 06/11/20) A-FIB/CHADSVASC A-FIB History Current/History of A-Fib/PAF?: No JARED BALTAZAR MD Jul 31, 2020 23:47
[2020-08-01] VITALS (7 sets, daily range): BP systolic 158–182; BP diastolic 90–98
[2020-08-01] MEDS: ACETAMINOPHEN TAB 650MG DOSE (2X325MG) PO PRN ×4 (00:24→22:02)
[2020-08-01] MEDS: DOCUSATE SODIUM 100MG CAPSULE PO SCH ×3 (02:03→19:42)
[2020-08-01] MEDS ORDERED: amLODIPine 5 MG TAB PO ONE ×2 (02:45→15:25)
[2020-08-01] MEDS ORDERED: MORPHINE 4 MG/ML 1ML VIAL/SYRINGE (J2270) IV ONE (04:15)
[2020-08-01 06:03] LABS: HEMATOCRIT 38.6 % (42.0-52.0); HEMOGLOBIN 12.4 g/dl (13.5-17.5); MEAN CORPUSCULAR HEMOGLOBIN 28.8 pg (27.0-33.0); MEAN CORPUSCULAR HGB CONC 32.1 g/dl (32.0-36.5); MEAN CORPUSCULAR VOLUME 89.6 fl (80.0-96.0); PLATELET COUNT, AUTOMATED 275 10^3/uL (150-450); RED BLOOD COUNT 4.31 10^6/uL (4.30-6.10); WHITE BLOOD COUNT 8.1 10^3/uL (4.0-10.0)
[2020-08-01 06:34] LABS: BLOOD UREA NITROGEN 29 MG/DL (7-18); CALCIUM LEVEL 9.1 MG/DL (8.5-10.1); CARBON DIOXIDE LEVEL 26 MEQ/L (21-32); CHLORIDE LEVEL 106 MEQ/L (98-107); CREATININE FOR GFR 0.94 MG/DL (0.70-1.30); GLOMERULAR FILTRATION RATE > 60.0 (>56); GLUCOSE, FASTING 146 MG/DL (70-100); POTASSIUM SERUM 4.3 MEQ/L (3.5-5.1); SODIUM LEVEL 139 MEQ/L (136-145)
[2020-08-01] MEDS ORDERED: MORPHINE 2 MG/ML 1ML VIAL (J2270) IV PRN ×2 (08:35→09:15)
[2020-08-01] MEDS ORDERED: amLODIPine 5 MG TAB PO SCH (09:00)
[2020-08-01] MEDS ORDERED: MORPHINE 2 MG/ML 1ML VIAL (J2270) IV ONE ×2 (09:20→13:00)
--- NOTE | 2020-08-01 14:02 | IPNPDOC ---
Date Seen The patient was seen on 08/01/20. Progress Note SUBJECTIVE: Facial pain, some blurry vision at times, no neurological deficits on exam. Improved with several doses of morphine, no increased bleeding noted from nares or back of throat. Denies chest pain, SOB, headache. OBJECTIVE PHYSICAL EXAMINATION: Constitutional: Awake and alert, in no apparent distress ENT: Bloody b/l nasal rockets in place, no facial pain on palpation Respiratory: Lungs CTA bilaterally. No respiratory distress. No use of accessory muscles. Cardiovascular: Regular rate and rhythm Gastrointestinal: Abdomen is soft, non distended, non tender, BS present. Musculoskeletal: No lower extremity edema. Integ: mild redness of the upper chest Neurologic: No focal neurological deficit. Mental Status: A&O x3, normal affect Skin: No visible rashes or bruising LABORATORY DATA: See below. IMAGING: See chart MICROBIOLOGY: Please see below. ASSESSMENT/PLAN 55-year-old male being admitted for observation due to epistaxis evaluated by ENT in the morning #Bilateral epistaxis: Bilateral Rhino Rocket in place. Admitted to observation. OR today by Dr. Aguiar for cauterization. Pain control with IV morphine PRN #Facial pain likely 2/2 to nasal packing: morphine PRN, ENT aware , no neurological deficits # Hypertension: Uncontrolled but likely 2/2 to ucontrolled facial pain from rhino rockets, monitor closely. Continue home meds. # DVT prophylaxis: SCDs/TEds DISPOSITION: D/c home when medically improved. VS, I&O, 24H, Fishbone Vital Signs/I&O Vital Signs Date Time Temp Pulse Resp B/P (MAP) Pulse Ox O2 Delivery O2 Flow Rate FiO2 08/01/20 13:29 14 08/01/20 08:34 72 162/94 08/01/20 06:00 97.9 94 Room Air I&O- Last 24 Hours up to 6 AM 08/01/20 06:00 Intake Total 500 ml Balance 500 ml Laboratory Data 24H LABS Laboratory Tests 2 07/31/20 21:19: Immature Granulocyte % (Auto) 1.1, Neutrophils (%) (Auto) 52.1, Lymphocytes (%) (Auto) 35.3, Monocytes (%) (Auto) 9.3H, Eosinophils (%) (Auto) 1.6, Basophils (%) (Auto) 0.6, Neutrophils # (Auto) 4.9, Lymphocytes # (Auto) 3.3, Monocytes # (Auto) 0.9H, Eosinophils # (Auto) 0.2, Basophils # (Auto) 0.1, Nucleated Red Blood Cells % (auto) 0.0, Prothrombin Time 12.1, Prothromb Time International Ratio 0.88, Activated Partial Thromboplast Time 29.7, Anion Gap 5L, Glomerular Filtration Rate > 60.0, Calcium Level 9.8 08/01/20 05:26: Nucleated Red Blood Cells % (auto) 0.0, Anion Gap 7L, Glomerular Filtration Rate > 60.0, Calcium Level 9.1, Magnesium Level 2.0 CBC/BMP Laboratory Tests 07/31/20 21:19 08/01/20 05:26 Payton Kowalski MD Aug 01, 2020 14:02
[2020-08-01] MEDS: MORPHINE 2 MG/ML 1ML VIAL (J2270) IV PRN ×3 (17:32→22:02)
[2020-08-01] MEDS ORDERED: hydrALAZINE 20MG/ML 1ML VIAL (J0360 PER 20MG) IV PRN (20:00)
[2020-08-01] MEDS: **hydrALAZINE HCL** 25 MG TAB PO SCH (20:45)
[2020-08-01] MEDS ORDERED: ISOSORBIDE MON. (IMDUR) 60 MG XR TAB PO ONE (22:20)
[2020-08-01] MEDS ORDERED: VALSARTAN 80 MG TAB (DIOVAN) PO ONE (22:30)
[2020-08-01 23:45] LABS: ALBUMIN 3.8 GM/DL (3.2-5.2); ALT/SGPT 28 U/L (12-78); BILIRUBIN,TOTAL 0.4 MG/DL (0.2-1.0); BLOOD UREA NITROGEN 16 MG/DL (7-18); CARBON DIOXIDE LEVEL 28 MEQ/L (21-32); CHLORIDE LEVEL 102 MEQ/L (98-107); CREATININE FOR GFR 0.82 MG/DL (0.70-1.30); GLOMERULAR FILTRATION RATE > 60.0 (>56); GLUCOSE, FASTING 125 MG/DL (70-100); MAGNESIUM LEVEL 1.7 MG/DL (1.8-2.4); NT-PRO BNP 19 PG/ML (<125); POTASSIUM SERUM 3.8 MEQ/L (3.5-5.1); SODIUM LEVEL 137 MEQ/L (136-145); TOTAL PROTEIN 6.8 GM/DL (6.4-8.2)
[2020-08-02] VITALS (10 sets, daily range): BP systolic 101–132; BP diastolic 58–80
[2020-08-02] MEDS: MORPHINE 2 MG/ML 1ML VIAL (J2270) IV PRN ×3 (00:02→04:55)
[2020-08-02] MEDS ORDERED: NS 1,000 ML IV SCH (01:05)
--- NOTE | 2020-08-02 02:14 | REPVR ---
PROCEDURE INFORMATION: Exam: CT Head Without Contrast Exam date and time: 08/02/2020 1:18 AM Age: 55 years old Clinical indication: Pain; Visual disturbance; Headache; Patient HX: Epistaxis; Additional info: Change in vision with severe headache TECHNIQUE: Imaging protocol: Computed tomography of the head without contrast. Radiation optimization: All CT scans at this facility use at least one of these dose optimization techniques: automated exposure control; mA and/or kV adjustment per patient size (includes targeted exams where dose is matched to clinical indication); or iterative reconstruction. COMPARISON: 1. CT BRAIN LAB SINUSES 2020-07-09 15:[address] Maxilofacial w/out contrast 2020-07-09 15:14 FINDINGS: Brain: Diffuse mild cerebral age related volume loss. Mild patchy low attenuation in the white matter compatible with mild chronic small vessel ischemic disease. No midline shift, mass, fluid collection, or evidence of hemorrhage. Cerebral ventricles: Ventricular enlargement proportional to volume loss. Paranasal sinuses: Visualized sinuses are unremarkable. No fluid levels. Mastoid air cells: Visualized mastoid air cells are well aerated. Bones/joints: Unremarkable. No acute fracture. Soft tissues: Unremarkable. IMPRESSION: Mild involutional changes, no acute intracranial abnormality. Electronically signed by: Marco Su On 08/02/2020 02:13:28 AM
[2020-08-02] MEDS: **hydrALAZINE HCL** 25 MG TAB PO SCH (05:10)
--- NOTE | 2020-08-02 05:26 | IPNPDOC ---
Text Note Date of Service The patient was seen on 08/02/20. NOTE Patients blood pressure remain in uncontrolled and is complaining of headache as he is now in hypertensive urgency with SBP 170-180. Apresoline 25 mg po TID added to his daily regimen. In blood pressure re-assessment his SBP is [address] one time order of Diovan 80 mg and re-assess patient. He continues to receive IV Morphine q 2hours for severe pain. Patient is saying his headache is worsened and his vision blurry. His SBP is now 128. In reviewing his BP upon admissions it was initially 160. Will order IV Fluids NS at 250 ml/hr to help raise his SBP up to [address] Head Stat w/o IV contrast to rule out any acute infarcts. In assessing patient at bedside he states he didn't think he would be in this much pain for so long. He reports his blurred vision is gone but his headache has only improved to 6/10 since his last dose IV Morphine. He is requesting more pain medication at this time. Attending notified of patient reporting change in vision and head CT dry ordered. IVF NS stopped with approximately 125-150 cc given. Reviewed patients Head CT w/o contrast which shows ischemic changes (chronic appearing) and no acute hemorrhage or mass effect or midline shift. Official Radiological read is: Brain: Diffuse mild cerebral age related volume loss. Mild patchy low attenuation in the white matter compatible with mild chronic small vessel ischemic disease. No midline shift, mass, fluid collection, or evidence of hemorrhage. Cerebral ventricles: Ventricular enlargement proportional to volume loss. Paranasal sinuses: Visualized sinuses are unremarkable. No fluid levels. Mastoid air cells: Visualized mastoid air cells are well aerated. Bones/joints: Unremarkable. No acute fracture. Soft tissues: Unremarkable. IMPRESSION: Mild involutional changes, no acute intracranial abnormality. VS,Fishbone, I+O VS, Fishbone, I+O Laboratory Tests 08/01/20 05:26 08/01/20 22:54 Vital Signs Date Time Temp Pulse Resp B/P (MAP) Pulse Ox O2 Delivery O2 Flow Rate FiO2 08/02/20 00:12 18 08/02/20 00:07 132/80 (97) 08/01/20 21:16 100.5 92 93 Room Air I&O- Last 24 Hours up to 6 AM 08/02/20 06:00 Intake Total 960 ml Output Total 600 ml Balance 360 ml [facility] Aug 02, 2020 01:57
[2020-08-02] MEDS ORDERED: **hydrALAZINE HCL** 25 MG TAB PO PRN (05:30)
[2020-08-02 06:05] LABS: BASO % 0.3 % (0.0-1.0); EOS % 0.1 % (0.0-3.0); HEMATOCRIT 36.7 % (42.0-52.0); HEMOGLOBIN 11.7 g/dl (13.5-17.5); LYMPH # 1.9 10^3/uL (1.5-5.0); MEAN CORPUSCULAR HEMOGLOBIN 28.6 pg (27.0-33.0); MEAN CORPUSCULAR HGB CONC 31.9 g/dl (32.0-36.5); MEAN CORPUSCULAR VOLUME 89.7 fl (80.0-96.0); MONO # 0.9 10^3/uL (0.0-0.8); MONO % 6.8 % (2.0-8.0); NEUTROPHILS # 10.5 10^3/uL (1.5-8.5); NEUTROPHILS % 77.8 % (36.0-66.0); PLATELET COUNT, AUTOMATED 292 10^3/uL (150-450); RED BLOOD COUNT 4.09 10^6/uL (4.30-6.10); WHITE BLOOD COUNT 13.5 10^3/uL (4.0-10.0)
[2020-08-02 06:26] LABS: BLOOD UREA NITROGEN 20 MG/DL (7-18); CALCIUM LEVEL 8.7 MG/DL (8.5-10.1); CARBON DIOXIDE LEVEL 26 MEQ/L (21-32); CHLORIDE LEVEL 101 MEQ/L (98-107); CREATININE FOR GFR 1.17 MG/DL (0.70-1.30); GLOMERULAR FILTRATION RATE > 60.0 (>56); GLUCOSE, FASTING 137 MG/DL (70-100); POTASSIUM SERUM 4.5 MEQ/L (3.5-5.1); SODIUM LEVEL 136 MEQ/L (136-145)
[2020-08-02] MEDS ORDERED: NEOSPORIN TOP OINT 15GM As Ordered ONE (07:09)
[2020-08-02 08:09] LABS: HEMATOCRIT 36.6 % (42.0-52.0); HEMOGLOBIN 11.9 g/dl (13.5-17.5); MEAN CORPUSCULAR HEMOGLOBIN 29.3 pg (27.0-33.0); MEAN CORPUSCULAR HGB CONC 32.5 g/dl (32.0-36.5); MEAN CORPUSCULAR VOLUME 90.1 fl (80.0-96.0); PLATELET COUNT, AUTOMATED 298 10^3/uL (150-450); RED BLOOD COUNT 4.06 10^6/uL (4.30-6.10); WHITE BLOOD COUNT 13.4 10^3/uL (4.0-10.0)
[2020-08-02] MEDS ORDERED: propofoL 200 MG/20 ML VIAL As Ordered ONE (08:12)
[2020-08-02] MEDS ORDERED: dexameTHASONE 4 MG/ML 1ML VIAL (J1100 PER 1MG) As Ordered ONE (08:12)
[2020-08-02] MEDS ORDERED: LIDOCAINE 2% 100MG/5ML SDV (FOR ANES.) As Ordered ONE (08:12)
[2020-08-02] MEDS ORDERED: ONDANSETRON 4MG/2ML VIAL As Ordered ONE (08:12)
[2020-08-02] MEDS ORDERED: fentaNYL 100 MCG/2 ML INJECTION (J3010) As Ordered ONE (08:12)
[2020-08-02] MEDS ORDERED: MIDAZOLAM INJ 2MG/2ML VIAL (J2250 PER 1MG) As Ordered ONE (08:12)
[2020-08-02] MEDS ORDERED: EPINEPHrine 1MG/ML INJ 30ML MD-VIAL As Ordered ONE (08:13)
[2020-08-02] MEDS ORDERED: SUCCINYLCHOLINE 100 MG/5 ML SYRINGE (J0330) As Ordered ONE (08:13)
[2020-08-02] MEDS ORDERED: METHYLENE BLUE 0.5% (5MG/ML) 10 ML AMP (PROVAYBLUE) As Ordered ONE (08:14)
[2020-08-02] MEDS ORDERED: PHENYLephrine 500MCG 5ML (100MCG/ML) SYRINGE As Ordered ONE ×2 (08:18→08:21)
--- NOTE | 2020-08-02 08:32 | REP ---
INDICATION: increased WBC, SOB, pain COMPARISON: Correlation with chest CT dated 06/21/2020 TECHNIQUE: Portable AP view of the chest FINDINGS: The mediastinum and cardiac silhouette are stable and within normal limits for portable technique. The lung estrella are clear without acute consolidation, effusion, or pneumothorax. Skeletal structures are intact. IMPRESSION: No acute cardiopulmonary process appreciated. <Electronically signed by Ramon Nava > 08/02/20 0828
[2020-08-02] MEDS ORDERED: VASOPRESSIN INJ 20 UNITS/ML VIAL As Ordered ONE (08:33)
[2020-08-02] MEDS ORDERED: HYDROmorphone HCL 2 MG/ML 1ML VIAL (J1170) As Ordered ONE (08:38)
[2020-08-02] MEDS ORDERED: LR 1,000 ML IV SCH ×2 (09:25→09:55)
[2020-08-02] MEDS ORDERED: ACETAMINOPHEN TAB 650MG DOSE (2X325MG) PO PRN (09:25)
[2020-08-02] MEDS ORDERED: fentaNYL 100 MCG/2 ML INJECTION (J3010) IV PRN (09:55)
[2020-08-02] MEDS ORDERED: ONDANSETRON 4MG/2ML VIAL IV PRN (09:55)
[2020-08-02] MEDS ORDERED: oxyCODONE 5MG TAB PO PRN (09:55)
[2020-08-02] MEDS: HYDROMORPHONE HCL 0.5 MG/ 0.5 ML SYRINGE (J1170 PER 1) IV PRN ×2 (10:03→10:10)
[2020-08-02] MEDS: DOCUSATE SODIUM 100MG CAPSULE PO SCH (11:54)
[2020-08-02] MEDS ORDERED: ACETAMINOPH W/CODEINE #3 TAB UD PO PRN (12:05)
[2020-08-02] MEDS ORDERED: ACET1TAB55 PO (16:32)
[2020-08-02] MEDS ORDERED: LISI20TA33 PO (16:32)
--- NOTE | 2020-08-02 17:29 | DS.PDOC ---
Discharge Summary General Date of Admission Jul 31, 2020 at 20:53 Date of Discharge 08/02/20 Discharge Summary PROCEDURES PERFORMED DURING STAY: [None]. ADMITTING DIAGNOSES: Bilateral epistaxis Facial pain Hypertension DISCHARGE DIAGNOSES: Bilateral epistaxis Facial pain Hypertension COMPLICATIONS/CHIEF COMPLAINT: Epistaxis. HISTORY OF PRESENT ILLNESS: 55-year-old male history of hypertension who presents due to bilateral nose bleed which started today. In the emergency department Rhino Rocket was placed in bilateral nares and approximately 500 mL of bloody output through suctioning oropharyngeal. Dr. Aguiar ENT saw the patient at bedside and will likely take him to the OR in the morning. The bleeding has now slowed down with minimal output. Patient says he feels well overall other than the bleeding his head feels a little heavy he doesn't have any chest pain or trouble breathing doesn't have any pain no fevers or chills. Patient will be admitted to observation for epistaxis and evaluation by ENT in the morning. HOSPITAL COURSE: During the hospital the following issue addressed #Bilateral epistaxis: OR today by Dr. Aguiar for cauterization and clipping.Dr. Aguiar recommended discharge patient today #Facial pain likely 2/2 to nasal packing: morphine PRN, ENT aware , no neurological deficits # Hypertension: Uncontrolled but likely 2/2 to uncontrolled facial pain from rhino rockets, monitor closely. Patient received treatment with antihypertensive medications. Blood pressure under control DISCHARGE MEDICATIONS: Please see below. ALLERGIES: Please see below. PHYSICAL EXAMINATION ON DISCHARGE: VITAL SIGNS: Please see below. Constitutional: Awake and alert, in no apparent distress ENT: Bloody b/l nasal rockets in place, no facial pain on palpation Respiratory: Lungs CTA bilaterally. No respiratory distress. No use of accessory muscles. Cardiovascular: Regular rate and rhythm Gastrointestinal: Abdomen is soft, non distended, non tender, BS present. Musculoskeletal: No lower extremity edema. Integ: mild redness of the upper chest Neurologic: No focal neurological deficit. Mental Status: A&O x3, normal affect Skin: No visible rashes or bruising LABORATORY DATA: Please see below. IMAGING: PROCEDURE INFORMATION: Exam: CT Head Without Contrast Exam date and time: 08/02/2020 1:18 AM Age: 55 years old Clinical indication: Pain; Visual disturbance; Headache; Patient HX: Epistaxis; Additional info: Change in vision with severe headache TECHNIQUE: Imaging protocol: Computed tomography of the head without contrast. Radiation optimization: All CT scans at this facility use at least one of these dose optimization techniques: automated exposure control; mA and/or kV adjustment per patient size (includes targeted exams where dose is matched to clinical indication); or iterative reconstruction. COMPARISON: 1. CT BRAIN LAB SINUSES 2020-07-09 15:[address] Maxilofacial w/out contrast 2020-07-09 15:14 FINDINGS: Brain: Diffuse mild cerebral age related volume loss. Mild patchy low attenuation in the white matter compatible with mild chronic small vessel ischemic disease. No midline shift, mass, fluid collection, or evidence of hemorrhage. Cerebral ventricles: Ventricular enlargement proportional to volume loss. Paranasal sinuses: Visualized sinuses are unremarkable. No fluid levels. Mastoid air cells: Visualized mastoid air cells are well aerated. Bones/joints: Unremarkable. No acute fracture. Soft tissues: Unremarkable. IMPRESSION: Mild involutional changes, no acute intracranial abnormality. Electronically signed by: Marco Su On 08/02/2020 02:13:28 AM PROGNOSIS: Fair ACTIVITY: [As tolerated]. DIET: Cardiac DISPOSITION: Home DISCHARGE INSTRUCTIONS: Follow ENT instruction ITEMS TO FOLLOWUP ON ON OUTPATIENT: Follow-up with ENT in 3-5 days DISCHARGE CONDITION: [Stable]. TIME SPENT ON DISCHARGE: 40minutes. Vital Signs/I&Os Vital Signs Date Time Temp Pulse Resp B/P (MAP) Pulse Ox O2 Delivery O2 Flow Rate FiO2 08/02/20 16:05 97.5 76 18 113/61 (78) 93 Room Air 08/02/20 09:45 10.0 I&O- Last 24 Hours up to 6 AM 08/02/20 06:00 Intake Total 960 ml Output Total 600 ml Balance 360 ml Laboratory Data Labs 24H Laboratory Tests 2 08/01/20 22:54: Anion Gap 7L, Glomerular Filtration Rate > 60.0, Calcium Level 9.0, Magnesium Level 1.7L, Total Bilirubin 0.4, Aspartate Amino Transf (AST/SGOT) 11, Alanine Aminotransferase (ALT/SGPT) 28, Alkaline Phosphatase 88, MW-Eyh-P-Type Natriuretic Peptide 19, Total Protein 6.8, Albumin 3.8, Albumin/Globulin Ratio 1.3 08/02/20 05:37: Anion Gap 9, Glomerular Filtration Rate > 60.0, Calcium Level 8.7, Immature Granulocyte % (Auto) 1.0, Neutrophils (%) (Auto) 77.8H, Lymphocytes (%) (Auto) 14.0L, Monocytes (%) (Auto) 6.8, Eosinophils (%) (Auto) 0.1, Basophils (%) (Auto) 0.3, Neutrophils # (Auto) 10.5H, Lymphocytes # (Auto) 1.9, Monocytes # (Auto) 0.9H, Eosinophils # (Auto) 0.0, Basophils # (Auto) 0.0, Nucleated Red Blood Cells % (auto) 0.0 CBC/BMP Laboratory Tests 08/01/20 22:54 08/02/20 05:37 Discharge Medications Scheduled Lisinopril (Lisinopril) 20 Mg Tablet, 1 TAB PO DAILY Scheduled PRN Acetaminophen (Acetaminophen) 325 Mg Tablet, 650 MG PO Q4H PRN for MILD PAIN OR FEVER Allergies Coded Allergies: Cashew (Unverified Allergy, Unknown, 06/11/20) Yiohtfx-Ode-Nbr Reductase Inhibitor (Unverified Allergy, Unknown, 06/11/20) prednisone (Unverified Allergy, Unknown, 06/11/20) JALIL SUNG DO Aug 02, 2020 17:29
[2020-08-02] MEDS ORDERED: VALSARTAN 40MG TABLET (DIOVAN) PO SCH (21:00)
== END 2020-08-02 19:07 | disposition home or self-care (01) ==
LOC: M ED 20:52 → M ED INP 20:53 → ENRESERV 08-01 00:45 → M MS5PR 08-01 01:58
PROVIDERS: ADMIT Family Medicine; ATTEND Internal Medicine
DX: R04.0 Epistaxis (principal); I10 Essential (primary) hypertension; G50.1 Atypical facial pain; Z79.899 Other long term (current) drug therapy; Z88.8 Allergy status to other drugs, medicaments and biological substances; Z91.010 Allergy to peanuts
CPT/HCPCS: 31238; 36415; 70450; 71045; 80048; 80053; 83735; 83880; 85025; 85027; 85610; 85730; 93041; 94760; 96361; 96374; 96376; 99285; J0330; J1100; J1170; J2250; J2270; J2370; J2405; J3010; Q9968

== ENCOUNTER → 2020-08-07 | Outpatient (REF) | payer BC ==
[~2020-08-07] MED LIST changes: +ACET1TAB55 PO; +LISI20TA33 PO
[2020-08-07 13:59] LABS: HEMATOCRIT 37.5 % (42.0-52.0); HEMOGLOBIN 12.1 g/dl (13.5-17.5); MEAN CORPUSCULAR HEMOGLOBIN 28.9 pg (27.0-33.0); MEAN CORPUSCULAR HGB CONC 32.3 g/dl (32.0-36.5); MEAN CORPUSCULAR VOLUME 89.5 fl (80.0-96.0); PLATELET COUNT, AUTOMATED 399 10^3/uL (150-450); RED BLOOD COUNT 4.19 10^6/uL (4.30-6.10); WHITE BLOOD COUNT 10.6 10^3/uL (4.0-10.0)
[2020-08-07 15:09] LABS: ALBUMIN 3.3 GM/DL (3.2-5.2); ALT/SGPT 35 U/L (12-78); BILIRUBIN,TOTAL 0.4 MG/DL (0.2-1.0); BLOOD UREA NITROGEN 17 MG/DL (7-18); C REACTIVE PROTEIN QUANTITATIV 6.25 MG/DL (0.00-0.30); CALCIUM LEVEL 9.3 MG/DL (8.5-10.1); CARBON DIOXIDE LEVEL 31 MEQ/L (21-32); CHLORIDE LEVEL 100 MEQ/L (98-107); CREATININE FOR GFR 0.84 MG/DL (0.70-1.30); GLOMERULAR FILTRATION RATE > 60.0 (>56); GLUCOSE, FASTING 106 MG/DL (70-100); POTASSIUM SERUM 4.8 MEQ/L (3.5-5.1); SODIUM LEVEL 137 MEQ/L (136-145); TOTAL PROTEIN 7.3 GM/DL (6.4-8.2)
[2020-08-07 15:21] LABS: BLOOD UREA NITROGEN 17 MG/DL (7-18); CALCIUM LEVEL 9.1 MG/DL (8.5-10.1); CARBON DIOXIDE LEVEL 29 MEQ/L (21-32); CHLORIDE LEVEL 100 MEQ/L (98-107); CREATININE FOR GFR 0.86 MG/DL (0.70-1.30); GLOMERULAR FILTRATION RATE > 60.0 (>56); GLUCOSE, FASTING 109 MG/DL (70-100); SODIUM LEVEL 137 MEQ/L (136-145)
[2020-08-08 17:07] LABS: Lyme Disease IgG/IgM Antibodie <0.91 ISR (0.00-0.90); Lyme Disease IgM Ab Quantitati <0.80 index (0.00-0.79)
== END ==
LOC: M SFHCADAM 08:51
PROVIDERS: ATTEND Family Medicine
DX: R04.0 Epistaxis (principal); I10 Essential (primary) hypertension

== ENCOUNTER → 2020-08-07 | Outpatient (CLI) | payer BC ==
--- NOTE | 2020-08-07 09:53 | REP ---
INDICATION: COUGH COMPARISON: 01/03/2010 TECHNIQUE: PA and lateral. FINDINGS: The mediastinum and cardiac silhouette are normal. The lung estrella are clear and without acute consolidation, effusion, or pneumothorax. The skeletal structures are intact and normal. IMPRESSION: No acute cardiopulmonary process. <Electronically signed by Ramon Nava > 08/07/20 [id number]
--- NOTE | 2020-08-08 18:53 | RO ---
OPERATIVE NOTE DATE OF OPERATION: 08/07/2020 PREOPERATIVE DIAGNOSIS: Recurrent epistaxis. POSTOPERATIVE DIAGNOSIS: Recurrent epistaxis. OPERATIVE PROCEDURE: 1. Right nasal cautery. 2. Endoscopic sphenopalatine artery ligation. 3. Right intranasal antrostomy. PROCEDURE IN DETAIL: Under general anesthesia, with the patient intubated, the patient was draped in the usual manner. I used pledgets soaked in adrenaline 1:100,000. I then went between the middle turbinate and the lateral nasal wall. I opened the maxillary sinus and enlarged that opening. I then went to the posterior wall. I dissected the mucosa posterior to the posterior wall of the maxillary sinus on the nasal surface. I then applied the sphenopalatine artery ligation. I put five clips on this artery and then cauterized around this area. The patient tolerated the procedure well. I placed some Gelfoam in the area. The patient was then extubated and transferred to the recovery room in excellent condition. ESTIMATED BLOOD LOSS: Less than 5 mL estimated blood loss.
== END ==
LOC: M ADAMS 09:28
PROVIDERS: ATTEND Family Medicine
DX: R05 Cough (principal)

== ENCOUNTER → 2021-02-13 | Outpatient (REF) | payer BC | LOC: M SFHCCLAY 11:33 | PROVIDERS: ATTEND Physician Assistant | DX: D18.01 Hemangioma of skin and subcutaneous tissue (principal) ==

== ENCOUNTER → 2021-03-19 | Outpatient (REF) | LOC: M LABSMTC 09:42 | PROVIDERS: ATTEND Pediatrics | DX: Z20.822 Contact with and (suspected) exposure to COVID-19 (principal) ==

== ENCOUNTER → 2021-05-16 | Outpatient (REF) | payer BC ==
[2021-05-16 13:15] LABS: HEMOGLOBIN A1c 5.8 %
[2021-05-16 13:31] LABS: ALBUMIN 4.3 GM/DL (3.2-5.2); ALT/SGPT 38 U/L (12-78); BILIRUBIN,TOTAL 0.4 MG/DL (0.2-1.0); BLOOD UREA NITROGEN 20 MG/DL (7-18); CALCIUM LEVEL 9.2 MG/DL (8.5-10.1); CARBON DIOXIDE LEVEL 26 MEQ/L (21-32); CHLORIDE LEVEL 105 MEQ/L (98-107); CHOLESTEROL LEVEL 235 MG/DL (<200); CHOLESTEROL RISK RATIO 5.595 (<5); GLOMERULAR FILTRATION RATE > 60.0 (>56); GLUCOSE, FASTING 105 MG/DL (70-100); HDL CHOLESTEROL 42 MG/DL (>40); LDL CHOLESTEROL 165 MG/DL (<100); NON-HDL-C 193 MG/DL; POTASSIUM SERUM 4.6 MEQ/L (3.5-5.1); SODIUM LEVEL 138 MEQ/L (136-145); TOTAL PROTEIN 7.2 GM/DL (6.4-8.2); TRIGLYCERIDES LEVEL 139 MG/DL (<150)
== END ==
LOC: M SFHCADAM 08:49
PROVIDERS: ATTEND Family Medicine
DX: I10 Essential (primary) hypertension (principal); R73.03 Prediabetes; E78.5 Hyperlipidemia, unspecified; Z12.5 Encounter for screening for malignant neoplasm of prostate
CPT/HCPCS: 80053; 80061; 83036; G0103

== ENCOUNTER → 2021-07-03 | Outpatient (CLI) | payer BC | LOC: M PLAIMG 10:24 | PROVIDERS: ATTEND Family Medicine | DX: R91.8 Other nonspecific abnormal finding of lung field (principal) ==

== ENCOUNTER → 2022-07-10 | Outpatient (REF) | payer BC ==
[2022-07-10 16:18] LABS: ALBUMIN 4.1 G/DL (3.2-5.2); ALKALINE PHOSPHATASE 90 U/L (46-116); ALT/SGPT 46 U/L (7.0-40); AST/SGOT 19 U/L (<34); BILIRUBIN,TOTAL 0.8 MG/DL (0.3-1.2); BLOOD UREA NITROGEN 25 MG/DL (9-23); CALCIUM LEVEL 8.9 MG/DL (8.5-10.1); CARBON DIOXIDE LEVEL 26 MMOL/L (20-31); CHLORIDE LEVEL 106 MMOL/L (98-107); CHOLESTEROL LEVEL 184 MG/DL (<200); CHOLESTEROL RISK RATIO 3.86 (<5); CREATININE FOR GFR 0.94 MG/DL (0.70-1.30); GLOMERULAR FILTRATION RATE > 60.0 (>56); GLUCOSE, FASTING 92 MG/DL (60-100); HDL CHOLESTEROL 47.6 MG/DL (>40); LDL CHOLESTEROL 119.4 MG/DL (<100); NON-HDL-C 136.4 MG/DL; POTASSIUM SERUM 4.3 MMOL/L (3.5-5.1); SODIUM LEVEL 139 MMOL/L (136-145); TOTAL PROTEIN 6.9 G/DL (5.7-8.2); TRIGLYCERIDES LEVEL 85 MG/DL (<150)
[2022-07-10 16:19] LABS: HEMOGLOBIN A1c 5.2 % (4.0-6.0)
[2022-07-10 16:20] LABS: FREE T4 1.14 NG/DL (0.89-1.76); THYROID STIMULATING HORMONE 1.303 uIU/ML (0.55-4.78)
== END ==
LOC: M SFHCADAM 14:24
PROVIDERS: ATTEND Family Medicine
DX: R73.03 Prediabetes (principal); E78.5 Hyperlipidemia, unspecified; Z12.5 Encounter for screening for malignant neoplasm of prostate
CPT/HCPCS: 80053; 80061; 83036; 84439; 84443; G0103

== ENCOUNTER → 2023-08-11 | Outpatient (CLI) | payer BC | LOC: M RAD 14:00 | PROVIDERS: ATTEND Physician Assistant Medical | DX: M25.552 Pain in left hip (principal); M16.12 Unilateral primary osteoarthritis, left hip ==

== ENCOUNTER → 2023-08-12 | Outpatient (REF) | payer BC ==
[2023-08-12 14:05] LABS: BASO # 0.1 10^3/uL (0.0-0.2); EOS # 0.1 10^3/uL (0.0-0.5); EOS % 1.9 % (0.0-3.0); HEMATOCRIT 46.1 % (42.0-52.0); HEMOGLOBIN 15.3 g/dl (13.5-17.5); LYMPH # 1.7 10^3/uL (1.5-5.0); LYMPH % 27.8 % (24.0-44.0); MEAN CORPUSCULAR HEMOGLOBIN 29.8 pg (27.0-33.0); MEAN CORPUSCULAR HGB CONC 33.2 g/dl (32.0-36.5); MEAN CORPUSCULAR VOLUME 89.7 fl (80.0-96.0); MONO # 0.6 10^3/uL (0.0-0.8); MONO % 9.5 % (2.0-8.0); NEUTROPHILS # 3.6 10^3/uL (1.5-8.5); NEUTROPHILS % 57.1 % (36.0-66.0); PLATELET COUNT, AUTOMATED 285 10^3/uL (150-450); RED BLOOD COUNT 5.14 10^6/uL (4.30-6.10); WHITE BLOOD COUNT 6.2 10^3/uL (4.0-10.0)
[2023-08-12 14:13] LABS: HEMOGLOBIN A1c 5.6 % (4.0-6.0)
[2023-08-12 14:16] LABS: PSA SCREENING 1.62 NG/ML (< 4.00)
[2023-08-12 14:21] LABS: THYROID STIMULATING HORMONE 1.995 uIU/ML (0.55-4.78)
[2023-08-12 14:22] LABS: TOTAL 25(OH) VITAMIN D 21.4 NG/ML (20.0-100.0)
[2023-08-12 14:23] LABS: ALBUMIN 3.9 G/DL (3.2-5.2); ALKALINE PHOSPHATASE 88 U/L (46-116); ALT/SGPT 27 U/L (7.0-40); AST/SGOT 15 U/L (<34); BILIRUBIN,TOTAL 0.5 MG/DL (0.3-1.2); BLOOD UREA NITROGEN 22 MG/DL (9-23); CALCIUM LEVEL 9.4 MG/DL (8.5-10.1); CARBON DIOXIDE LEVEL 27 MMOL/L (20-31); CHLORIDE LEVEL 105 MMOL/L (98-107); CHOLESTEROL LEVEL 217 MG/DL (<200); CHOLESTEROL RISK RATIO 4.93 (<5); CREATININE FOR GFR 0.91 MG/DL (0.70-1.30); GLOMERULAR FILTRATION RATE > 60.0 (>56); GLUCOSE, FASTING 111 MG/DL (60-100); LDL CHOLESTEROL 144.6 MG/DL (<100); POTASSIUM SERUM 4.8 MMOL/L (3.5-5.1); SODIUM LEVEL 139 MMOL/L (136-145); TOTAL PROTEIN 6.8 G/DL (5.7-8.2); TRIGLYCERIDES LEVEL 142 MG/DL (<150)
== END ==
LOC: M SFHCADAM 08:01
PROVIDERS: ATTEND Physician Assistant Medical
DX: M85.80 Other specified disorders of bone density and structure, unspecified site (principal); E66.9 Obesity, unspecified; I10 Essential (primary) hypertension; R73.03 Prediabetes; Z12.5 Encounter for screening for malignant neoplasm of prostate

== ENCOUNTER → 2023-08-12 | Outpatient (CLI) | payer BC | LOC: M ADAMS 08:40 | PROVIDERS: ATTEND Physician Assistant Medical | DX: M25.561 Pain in right knee (principal); M25.562 Pain in left knee; M54.50 Low back pain, unspecified; M25.552 Pain in left hip ==

== ENCOUNTER → 2023-08-19 | Outpatient (CLI) | payer BC | LOC: M WHC 08:15 | PROVIDERS: ATTEND Physician Assistant Medical | DX: Z13.820 Encounter for screening for osteoporosis (principal); M85.80 Other specified disorders of bone density and structure, unspecified site ==

== ENCOUNTER → 2023-10-06 | Outpatient (REF) | payer BC ==
[2023-10-06 17:54] LABS: BASO # 0.1 10^3/uL (0.0-0.2); BASO % 1.2 % (0.0-1.0); EOS # 0.1 10^3/uL (0.0-0.5); EOS % 1.6 % (0.0-3.0); HEMOGLOBIN 14.7 g/dl (13.5-17.5); LYMPH # 1.8 10^3/uL (1.5-5.0); LYMPH % 26.7 % (24.0-44.0); MEAN CORPUSCULAR HEMOGLOBIN 30.4 pg (27.0-33.0); MEAN CORPUSCULAR HGB CONC 34.2 g/dl (32.0-36.5); MONO # 0.6 10^3/uL (0.0-0.8); MONO % 8.3 % (2.0-8.0); NEUTROPHILS # 4.1 10^3/uL (1.5-8.5); NEUTROPHILS % 59.3 % (36.0-66.0); PLATELET COUNT, AUTOMATED 274 10^3/uL (150-450); RED BLOOD COUNT 4.83 10^6/uL (4.30-6.10); WHITE BLOOD COUNT 6.9 10^3/uL (4.0-10.0)
[2023-10-06 18:10] LABS: ALBUMIN 3.9 G/DL (3.2-5.2)
[2023-10-06 18:17] LABS: PERCENT SATURATION 24.8 % (19.7-50.0)
[2023-10-06 18:20] LABS: FERRITIN 168.9 NG/ML (10.5-307.3)
== END ==
LOC: M LABDRAWC 16:45
PROVIDERS: ATTEND Orthopaedic Surgery
DX: M25.552 Pain in left hip (principal); M16.12 Unilateral primary osteoarthritis, left hip

== ENCOUNTER → 2023-10-26 | Outpatient (REF) | payer BC ==
[2023-10-26 17:15] LABS: INR 1.01; PARTIAL THROMBOPLASTIN TIME 30.4 SECONDS (24.8-34.2)
== END ==
LOC: M SFHCADAM 14:44
PROVIDERS: ATTEND Family Medicine
DX: Z01.818 Encounter for other preprocedural examination (principal)

== ENCOUNTER → 2023-11-11 | Outpatient (CLI) | payer BC | LOC: M RAD 12:26 | PROVIDERS: ATTEND Orthopaedic Surgery | DX: M79.605 Pain in left leg (principal) ==

== ENCOUNTER → 2023-12-16 | Outpatient (REF) | payer BC ==
[2023-12-16 18:07] LABS: BLOOD UREA NITROGEN 15 MG/DL (9-23); CALCIUM LEVEL 10.2 MG/DL (8.5-10.1); CARBON DIOXIDE LEVEL 30 MMOL/L (20-31); CHLORIDE LEVEL 108 MMOL/L (98-107); CREATININE FOR GFR 0.79 MG/DL (0.70-1.30); GLOMERULAR FILTRATION RATE > 60.0 (>56); GLUCOSE, FASTING 99 MG/DL (60-100); POTASSIUM SERUM 4.7 MMOL/L (3.5-5.1); SODIUM LEVEL 142 MMOL/L (136-145)
== END ==
LOC: M SFHCADAM 12:06
PROVIDERS: ATTEND Family Medicine
DX: R60.0 Localized edema (principal); I10 Essential (primary) hypertension

== ENCOUNTER → 2023-12-22 | Outpatient (CLI) | payer BC | LOC: M CLY 11:32 | PROVIDERS: ATTEND Family Medicine | DX: R60.0 Localized edema (principal); I10 Essential (primary) hypertension ==

== ENCOUNTER → 2024-01-13 | Outpatient (REF) | payer BC ==
[2024-01-17 15:08] LABS: LYME TOTAL ANTIBODY CIA <= 0.90 Index (<=0.90)
== END ==
LOC: M SFHCADAM 10:15
PROVIDERS: ATTEND Family Medicine
DX: I10 Essential (primary) hypertension (principal); M21.70 Unequal limb length (acquired), unspecified site; W57.XXXA Bitten or stung by nonvenomous insect and other nonvenomous arthropods, initial encounter

== ENCOUNTER → 2024-11-30 | Outpatient (REF) | payer BC ==
[2024-11-30 18:06] LABS: ESTIMATED AVERAGE GLUCOSE 114.0 MG/DL (60-110)
[2024-11-30 18:08] LABS: ALT/SGPT 34 U/L (7.0-40); AST/SGOT 24 U/L (<34); CALCIUM LEVEL 9.3 MG/DL (8.3-10.6); CARBON DIOXIDE LEVEL 28 MMOL/L (20-31); CHLORIDE LEVEL 102 MMOL/L (98-107); CHOLESTEROL LEVEL 219 MG/DL (<200); CHOLESTEROL RISK RATIO 5.98 (<5); CREATININE FOR GFR 0.96 MG/DL (0.70-1.30); GLOMERULAR FILTRATION RATE > 90.0 (>49); LDL CHOLESTEROL 142.0 MG/DL (<100); NON-HDL-C 182.4 MG/DL; POTASSIUM SERUM 4.8 MMOL/L (3.5-5.1); PSA SCREENING 1.84 NG/ML (< 4.00); SODIUM LEVEL 139 MMOL/L (136-145); TRIGLYCERIDES LEVEL 202 MG/DL (<150)
[2024-11-30 18:09] LABS: FREE T4 1.37 NG/DL (0.89-1.76)
== END ==
LOC: M SFHCADAM 10:11
PROVIDERS: ATTEND Family Medicine
DX: E78.5 Hyperlipidemia, unspecified (principal); I10 Essential (primary) hypertension; R73.03 Prediabetes; Z12.5 Encounter for screening for malignant neoplasm of prostate; Z68.41 Body mass index [BMI] 40.0-44.9, adult
CPT/HCPCS: 80053; 80061; 83036; 84439; 84443; G0103